=== PATIENT | male | born 1945 | race Caucasian/White ===

== ENCOUNTER 2017-06-04 13:23 | Emergency (ER) | payer MEDICARE ==
[2017-06-04 13:36] VITALS: BP 122/75
--- NOTE | 2017-06-04 15:11 | UC ---
Alexandre Bonds Nilda, scribed for Zi Bennett MD on 06/04/17 at 1449 . Abdominal Pain Male HPI - HPI Summary HPI Summary: This patient is a 71 year old M presenting to [facility] [place] with a chief complaint of intermittent RUQ pain since yesterday. The patient rates the aching pain 4/10 in severity. Symptoms aggravated by palpation and alleviated by nothing. Patient denies N/V, fever, and dysuria. Last BM was this morning and was normal and without blood per patient. Patient states he has not experienced previous similar episode. No PMHx renal calculi. No PSHx APPY. - History of Current Complaint Chief Complaint: UCAbdominalPain Stated Complaint: ABD PAIN Time Seen by Provider: 06/04/17 14:38 Hx Obtained From: Patient Onset/Duration: Sudden Onset, Lasting Days - yesterday, Still Present Timing: Intermittent Episodes Lasting: Severity Currently: Moderate Pain Intensity: 4 Pain Scale Used: 0-10 Numeric Location: Discrete At: RUQ Radiates: No Character: Aching Aggravating Factor(s): Other - palpation Alleviating Factor(s): Nothing Associated Signs And Symptoms: Positive: Other - denies N/V, fever, and dysuria - Allergies/Home Medications Allergies/Adverse Reactions: Allergies Allergy/AdvReac Type Severity Reaction Status Date / Time Penicillins Allergy Rash And Verified 06/04/17 13:32 Itching Home Medications: Home Medications Omeprazole CAP* [Prilosec CAP* 20 MG] 20 mg PO DAILY 06/04/17 [History Confirmed 06/04/17] PMH/Surg Hx/FS Hx/Imm Hx - Surgical History Surgical History: Yes Surgery Procedure, Year, and Place: TONSILS; DENTAL SURGERY; - Social History Alcohol Use: Daily Alcohol Amount: 1 glass wine at night Substance Use Type: None Smoking Status (MU): Never Smoked Tobacco Review of Systems All Other Systems Reviewed And Are Negative: Yes Physical Exam - Summary Physical Exam Summary: VITAL SIGNS: Reviewed. GENERAL: Patient is a well developed and nourished male who is lying comfortable in the stretcher. Patient is not in any acute respiratory distress. HEAD AND FACE: Normocephalic and atraumatic. EYES: PERRLA, EOMI x 2, No injected conjunctiva. EARS: Hearing grossly intact. Ear canals and tympanic membranes are WNL. MOUTH: Oropharynx within normal limits. NECK: Supple, trachea is midline, no adenopathy, no JVD. CHEST: Symmetric, no tenderness at palpation LUNGS: Clear to auscultation bilaterally. No wheezing or crackles. CVS: RRR,, S1 and S2 present, no murmurs or gallops appreciated. ABDOMEN: Soft, positve tenderness in the RLQ and Right flank area. Positive right CVTA tenderness. EXTREMITIES: FROM in all major joints, no edema, no cyanosis or clubbing. NEURO: Alert and oriented x 3. No acute neurological deficits. Speech is normal. SKIN: Dry and warm : Circumcised penis, both testicles are descended. No masses are appreciated. Positive cremasteric reflex. Triage Information Reviewed: Yes Vital Signs: Initial Vital Signs Temp 98.1 F 06/04/17 13:26 Pulse 91 06/04/17 13:26 Resp 18 06/04/17 13:26 BP 122/75 06/04/17 13:26 Pulse Ox 100 06/04/17 13:26 Abd Pain Male Course/Dx - Course Course Of Treatment: Patient with RLQ and rihgt flank tenderness. DDX: appendicitis, urethral stone or diverticulitis. Patoent transfered to the ED for further w/u and management. He declined ambulance, he will drive to the ED. Medications reviewed. Allergies reviewed. The patient was found to have increase BP in UC. The patient will follow up with PCP for better control of BP. - Differential Dx/Clinical Impression Differential Diagnosis/HQI/PQRI: Appendicitis, Bowel Obstruction, Constipation, Diverticulitis, Prostatitis, Renal Colic, Testicular Torsion, Ureteral Stone, Urinary Tract Infection Provider Diagnoses: Right lower quadrant and right flank pain Discharge - Sign-Out/Discharge Documenting (check all that apply): Discharge - Discharge Plan Condition: Stable Disposition: HOME Patient Education Materials: Flank Pain (ED) Referrals: Usman Peralta MD [Primary Care Provider] - Additional Instructions: FOLLOW UP WITH YOUR PRIMARY CARE PROVIDER WITHIN ONE WEEK FOR HIGH BLOOD PRESSURE NOTED TODAY. Patient will be send to the ED for further w/u for abdominal and flank pain. Patient declined an ambulance. - Billing Disposition and Condition Condition: STABLE Disposition: HOME The documentation as recorded by the Alexandre weston Nilda accurately reflects the service I personally performed and the decisions made by me, Zi Bennett MD.
== END 2017-06-04 14:53 | disposition home or self-care (01) ==
LOC: UCEAST 13:23
DX: R10.31 Right lower quadrant pain (principal); Z88.0 Allergy status to penicillin
CPT/HCPCS: 99212; G0463

== ENCOUNTER 2017-06-04 15:12 | Emergency (ER) | payer MEDICARE ==
[2017-06-04 17:59] LABS: ABS Basophils 0 10^3/ul (0-0.2); ABS Eosinophils 0.2 10^3/ul (0-0.6); ABS Lymphocytes 1.9 10^3/ul (1.0-4.8); ABS Monocytes 0.6 10^3/ul (0-0.8); ABS Neutrophils 7.6 10^3/ul (1.5-7.7); ABS Nucleated RBC 0 10^3/ul; Eosinophil % 1.8 % (0-6); Hematocrit 43 % (42-52); Hemoglobin 14.5 g/dl (14.0-18.0); Lymphocyte % 18.4 % (25-47); Mean Corpuscular HGB Conc 34 g/dl (31-36); Mean Corpuscular Hemoglobin 30 pg (27-31); Mean Corpuscular Volume 89 fL (80-94); Mean Platelet Volume 9 um3 (7.4-10.4); Nucleated Red Blood Cells % 0; Platelet Count 223 10^3/ul (150-450); Red Cell Distribution Width 13 % (10.5-15); White Blood Count 10.4 10^3/ul (3.5-10.8)
[2017-06-04 18:18] LABS: EGFR Non-African American 90.3 (>60)
--- NOTE | 2017-06-04 18:39 | RAD ---
HISTORY: Right upper quadrant pain COMPARISONS: None TECHNIQUE: Multiple transverse and longitudinal ultrasound images were obtained of the right upper quadrant of the abdomen using grayscale, color Doppler, and spectral Doppler imaging. FINDINGS: LIVER: The liver is diffusely echogenic and coarse in echotexture, with decreased acoustic transmission. The liver is otherwise normal in shape, size, and contour. There is normal hepatopedal flow of the portal vein on Doppler imaging. BILIARY TREE: There is no intrahepatic or extrahepatic biliary dilatation. The common duct measures 0.3 cm. GALLBLADDER: The gallbladder is well-visualized. There is no cholelithiasis, gallbladder wall thickening, pericholecystic fluid, or sonographic Wesley sign. A gallbladder wall polyp is noted measuring 0.27 m in size. PANCREAS: The head of the pancreas is unremarkable. The tail of the pancreas is not well visualized secondary to overlying bowel gas. RIGHT KIDNEY: Is noted measuring 3.5 cm. There is no hydronephrosis or nephrolithiasis. The right kidney measures 11.1 x 4.4 x 5 cm. AORTA AND IVC: The aorta and IVC are unremarkable. Normal arterial and venous waveforms are identifiable on spectral Doppler imaging. FLUID: There are no pleural effusions. There is no free fluid within the hepatorenal recess. OTHER FINDINGS: None. IMPRESSION: 1. FATTY INFILTRATION OF THE LIVER. 2. 0.2 CM GALLBLADDER WALL POLYP.
[2017-06-04 19:33] LABS: Urine Appearance Clear; Urine Blood Negative (Negative); Urine Color Yellow; Urine Ketones Trace (Negative); Urine Protein Negative (Negative); Urine Specific Gravity 1.013 (1.010-1.030); Urine Urobilinogen Negative (Negative)
[2017-06-04] MEDS ORDERED: Iohexol 300* (CONTRAST) 10 ML SDV IV ONE (19:35)
--- NOTE | 2017-06-04 20:17 | RAD ---
CLINICAL HISTORY: Right lower quadrant pain COMPARISON: Ultrasound dated June 04, 2017 TECHNIQUE: Multiple contiguous axial CT scans were obtained of the abdomen and pelvis after the administration of intravenous contrast. Coronal and sagittal multiplanar reformations are submitted for review. FINDINGS: LUNG BASES: The lung bases are clear. LIVER: The liver is diffusely low in attenuation compared to the spleen. There are no focal hepatic parenchymal masses. BILE DUCTS: There is no intrahepatic or extrahepatic biliary dilatation. GALLBLADDER: The gallbladder is normal, without pericholecystic inflammatory change. PANCREAS: The pancreas is normal, without mass or ductal dilatation. SPLEEN: Normal in size and appearance. UPPER GI TRACT: Evaluation of the gastrointestinal tract is limited by incomplete gastric distention. There is malrotation. The ligament of Treitz is to the right of midline. SMALL BOWEL AND MESENTERY: As noted above, there is malrotation, with the small bowel predominantly on the right side of the abdomen. COLON: There is malrotation with the large bowel predominantly on the left side of the abdomen. The cecum is noted within the mid abdomen. A normal appendix is noted best seen on coronal images 18 through 23. There is no appreciable volvulus. ADRENALS: Normal bilaterally. KIDNEYS: There is a simple cyst of the right kidney. There is no appreciable hydronephrosis or nephrolithiasis. BLADDER: The bladder is smooth in contour. PELVIC ORGANS: The prostate is diffusely enlarged. The seminal vesicles are symmetric. AORTA: The aorta is normal. IVC: Unremarkable LYMPH NODES: There is no lymphadenopathy by size criteria. ABDOMINAL WALL: There is no evidence for abdominal wall hernia. BONES AND SOFT TISSUES: There are mild diffuse degenerative changes. OTHER: None IMPRESSION: 1. 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 2. NORMAL APPENDIX. 3. FATTY INFILTRATION OF THE LIVER. 4. ENLARGED PROSTATE.
[2017-06-04] MEDS ORDERED: traMADol TAB* 50 MG PO ONE (21:25)
[2017-06-04 22:06] VITALS: BP 123/73
--- NOTE | 2017-06-08 13:42 | ED ---
Mary Bonds Gabriel, scribed for Juan Naylor MD on 06/04/17 at 1748 . Abdominal Pain/Male - HPI Summary HPI Summary: This patient is a 71 year old M presenting to [facility] with a chief complaint of waxing and waning ABD pain that began yesterday. The patient rates the pain 4/ 10 in severity. Patient denies fever, sweat, dysuria, hematuria, melena, and n/v /d. Pt states the pain was worse last night after dinner, he had salmon. No hx of kidney stones. - History of Current Complaint Chief Complaint: EDAbdPain Stated Complaint: ABD PAIN/SENT FROM [facility] Time Seen by Provider: 06/04/17 17:34 Hx Obtained From: Patient Onset/Duration: Still Present Timing: Constant Severity Initially: Moderate Severity Currently: Moderate Pain Intensity: 4 Pain Scale Used: 0-10 Numeric Location: Diffuse Radiates: No Associated Signs And Symptoms: Positive: Negative - fever, sweat, dysuria, hematuria, melena, n/v/d, - Allergies/Home Medications Allergies/Adverse Reactions: Allergies Allergy/AdvReac Type Severity Reaction Status Date / Time Penicillins Allergy Rash And Verified 06/04/17 15:26 Itching PMH/Surg Hx/FS Hx/Imm Hx Endocrine/Hematology History: Denies: Hx Diabetes Cardiovascular History: Denies: Hx Hypertension, Hx Pacemaker/ICD Respiratory History: Denies: Hx Asthma History: Denies: Hx Renal Disease Sensory History: Denies: Hx Hearing Aid Psychiatric History: Denies: Hx Panic Disorder - Surgical History Surgery Procedure, Year, and Place: TONSILS; DENTAL SURGERY; Infectious Disease History: No Infectious Disease History: Denies: Traveled Outside the [place] in Last 30 Days - Family History Known Family History: Negative: Blood Disorder - Social History Alcohol Use: Daily Alcohol Amount: 1 glass wine at night Substance Use Type: Reports: None Smoking Status (MU): Never Smoked Tobacco Review of Systems Negative: Fever, Chills, Skin Diaphoresis Negative: Drainage Negative: Sore Throat Negative: Chest Pain Negative: Shortness Of Breath, Cough Gastrointestinal: Negative - melena Positive: Abdominal Pain. Negative: Vomiting, Diarrhea, Nausea Negative: dysuria, hematuria Negative: Myalgia, Edema Negative: Rash Neurological: Negative - dizziness All Other Systems Reviewed And Are Negative: Yes Physical Exam - Summary Physical Exam Summary: Constitutional: Well-developed, Well-nourished, Alert. (-) Distressed Skin: Warm, Dry HENT: Normocephalic; Atraumatic Eyes: Conjunctiva normal Neck: Musculoskeletal ROM normal neck. (-) JVD, (-) Stridor, (-) Tracheal deviation Cardio: Rhythm regular, rate normal, Heart sounds normal; Intact distal pulses; The pedal pulses are 2+ and symmetric. Radial pulses are 2+ and symmetric. (-) Murmur Pulmonary/Chest wall: Effort normal. (-) Respiratory distress, (-) Wheezes, (-) Rales Abd: Soft, (+) RUQ Tenderness, (-) Distension, (-) Guarding, (-) Rebound Musculoskeletal: (-) Edema Lymph: (-) Cervical adenopathy Neuro: Alert, Oriented x3 Psych: Mood and affect Normal Triage Information Reviewed: Yes Vital Signs On Initial Exam: Initial Vitals Temp Pulse Resp BP Pulse Ox 98.4 F 83 16 125/79 100 06/04/17 15:26 06/04/17 15:26 06/04/17 15:26 06/04/17 15:26 06/04/17 15:26 Vital Signs Reviewed: Yes Diagnostics - Vital Signs Vital Signs Temp Pulse Resp BP Pulse Ox 06/04/17 17:20 98.3 F 74 20 127/75 100 06/04/17 15:26 98.4 F 83 16 125/79 100 - Laboratory Result Diagrams: 06/04/17 17:40 06/04/17 17:40 Lab Statement: Any lab studies that have been ordered have been reviewed, and results considered in the medical decision making process. - CT CT ABD/Pelvis CT Interpretation Completed By: Radiologist - 1. 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 2. NORMAL APPENDIX. 3. FATTY INFILTRATION OF THE LIVER. 4. ENLARGED PROSTATE. ED physician has reviewed this radiology report. Re-Evaluation - Re-Evaluation First Eval Re-Evaluation Time: 21:32 Change: Improved Comment: The patient's pain has decreased and I discussed all test results with the pt. Abdominal Pain Fem Course/Dx - Course Assessment/Plan: This patient is a 71 year old M presenting to [facility] with a chief complaint of waxing and waning ABD pain that began yesterday. The patient rates the pain 4/10 in severity. Patient denies fever, sweat, dysuria, hematuria , melena, and n/v/d. Pt states the pain was worse last night after dinner, he had salmon. No hx of kidney stones. Gallbladder US reveals, per radiologist, 1. FATTY INFILTRATION OF THE LIVER. 2. 0.2 CM GALLBLADDER WALL POLYP. ABD/ pelvis CT reveals, 1. 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 2. NORMAL APPENDIX. 3. FATTY INFILTRATION OF THE LIVER. 4. ENLARGED PROSTATE. Test results with no significant abnormalities. Blood work and UA obtained. The pt symptoms are colicky and worse after meals. There is no surgical ABD present and he was non tender on repeat exam. Dx biliary colic. We discussed patient care with Dr. Meade and they stated there is no need for surgical management of the malrotation. Patient will be discharged and follow up from Dr. Meade. The patient is agreeable with this plan. - Diagnoses Provider Diagnoses: Biliary colic - Provider Notifications Discussed Care Of Patient With: Cam Meade Time Discussed With Above Provider: 21:00 Instructed by Provider To: Other Discharge - Sign-Out/Discharge Documenting (check all that apply): Discharge - Discharge Plan Condition: Stable Disposition: HOME Patient Education Materials: Biliary Colic (ED), Low Fat Diet (ED) Referrals: Usman Peralta MD [Primary Care Provider] - 3 Days Cam Meade MD [Medical Doctor] - 3 Days Additional Instructions: RETURN TO THE EMERGENCY DEPARTMENT FOR CHANGING OR WORSENING SYMPTOMS. The documentation as recorded by the Mary weston Gabriel accurately reflects the service I personally performed and the decisions made by , Juan Naylor MD.
== END 2017-06-04 22:01 | disposition home or self-care (01) ==
LOC: ED 15:12
DX: K80.50 Calculus of bile duct without cholangitis or cholecystitis without obstruction (principal); N40.0 Benign prostatic hyperplasia without lower urinary tract symptoms; Z88.0 Allergy status to penicillin
CPT/HCPCS: 36415; 74177; 76705; 80053; 81003; 83605; 83690; 85025; 86140; 99284; Q9967

== ENCOUNTER 2020-07-18 12:46 | Observation (INO) ==
[2020-07-18 13:18] LABS: ABS Eosinophils 0.1 10^3/ul (0-0.6); ABS Lymphocytes 1.9 10^3/ul (1.0-4.8); ABS Monocytes 0.4 10^3/ul (0-0.8); ABS Neutrophils 6.3 10^3/ul (1.5-7.7); Eosinophil % 1.7 %; Hematocrit 44 % (42-52); Hemoglobin 14.6 g/dL (14.0-18.0); Lymphocyte % 21.1 %; Mean Corpuscular HGB Conc 33 g/dL (31-36); Mean Corpuscular Hemoglobin 29 pg (27-31); Mean Corpuscular Volume 88 fL (80-94); Mean Platelet Volume 8.6 fL (7.4-10.4); Platelet Count 220 10^3/uL (150-450); Red Blood Count 4.99 10^6 /uL (4.18-5.48); Red Cell Distribution Width 13 % (10-15); White Blood Count 8.8 10^3/uL (3.5-10.8)
[2020-07-18 13:37] LABS: Albumin 4.4 g/dL (3.2-5.2); Albumin/Globulin Ratio 1.6 (1-3); Calcium 9.2 mg/dL (8.6-10.3); EGFR African American 89.7 (>60); EGFR Non-African American 74.1 (>60); Globulin 2.8 g/dL (2-4); Potassium 4.1 mmol/L (3.5-5.0); Total Bilirubin 0.4 mg/dL (0.2-1.0); Total Protein 7.2 g/dL (6.4-8.9)
[2020-07-18] MEDS ORDERED: Polyethylene Glycol 3350 17 GM PACKET PO PRN (15:50)
[2020-07-18] MEDS: Heparin 5000 UNITS/ML 1 mL VIAL SUBCUT SCH (20:41)
[2020-07-19 05:01] LABS: ABS Eosinophils 0.3 10^3/ul (0-0.6); ABS Lymphocytes 2.2 10^3/ul (1.0-4.8); ABS Monocytes 0.5 10^3/ul (0-0.8); ABS Neutrophils 3.5 10^3/ul (1.5-7.7); Eosinophil % 4.3 %; Hematocrit 41 % (42-52); Hemoglobin 13.8 g/dL (14.0-18.0); Lymphocyte % 33.8 %; Mean Corpuscular HGB Conc 33 g/dL (31-36); Mean Corpuscular Hemoglobin 29 pg (27-31); Mean Corpuscular Volume 88 fL (80-94); Mean Platelet Volume 8.8 fL (7.4-10.4); Platelet Count 185 10^3/uL (150-450); Red Blood Count 4.71 10^6 /uL (4.18-5.48); Red Cell Distribution Width 14 % (10-15); White Blood Count 6.5 10^3/uL (3.5-10.8)
[2020-07-19 05:15] LABS: EGFR African American 90.7 (>60); HDL Cholesterol 35.6 mg/dL; Potassium 4.4 mmol/L (3.5-5.0)
[2020-07-19 05:48] LABS: TSH Ultra Thyroid Stim Horm 2.2 mcIU/mL (0.34-5.60)
[2020-07-19] MEDS ORDERED: Regadenoson 0.4 MG/5 ML SYRINGE ONE (09:03)
[2020-07-19] MEDS: Heparin 5000 UNITS/ML 1 mL VIAL SUBCUT SCH (11:41)
[2020-07-19 12:22] VITALS: BP 129/67
== END 2020-07-19 14:45 | disposition home or self-care (01) ==
LOC: ED 12:46 → MEDTELE 12:46
PROVIDERS: ADMIT Hospitalist; ATTEND Hospitalist

== ENCOUNTER 2022-09-28 18:39 | Inpatient (IN) ==
[2022-09-28] MEDS ORDERED: Heparin 5000 UNITS/ML 1 mL VIAL SUBCUT ONE (22:52)
[2022-09-28] MEDS ORDERED: Morphine 2 MG/ML SYRINGE IV PRN (23:02)
[2022-09-29 00:53] LABS: ABS Eosinophils 0.1 10^3/uL (0.0-0.5); ABS Lymphocytes 1.3 10^3/uL (1.0-4.8); ABS Monocytes 0.8 10^3/uL (0.0-1.1); ABS Neutrophils 8.2 10^3/uL (1.5-7.6); ABS Nucleated RBC 0.01 10^3/ul; Eosinophil % 1.2 %; Hematocrit 33.8 % (38-53); Hemoglobin 12.1 g/dL (13.2-16.3); Lymphocyte % 12.9 %; Mean Corpuscular Hemoglobin 33.4 pg (27-33); Mean Corpuscular Hgb Conc 35.7 g/dL (31-36); Mean Corpuscular Volume 93.6 fL (80-97); Mean Platelet Volume 8.2 fL (7.5-11.2); Nucleated Red Blood Cells % 0.1 /100 WBC (0.0-0.4); Platelet Count 187 10^3/uL (150-450); Red Blood Count 3.61 10^6/uL (4.06-5.63); Red Cell Distribution Width 13.6 % (12-17); White Blood Count 10.4 10^3/uL (3.6-10.2)
[2022-09-29 01:01] LABS: Calcium 8.9 mg/dL (8.6-10.3); Potassium 3.9 mmol/L (3.5-5.0)
[2022-09-29] MEDS ORDERED: Naloxone 0.4 mg VIAL 0.4 mg/ml 1 ml VIAL IV PRN (07:52)
[2022-09-29] MEDS ORDERED: HYDROmorphone 1 MG/1 ML SYRINGE IV PRN (07:52)
[2022-09-29] MEDS ORDERED: Ondansetron 4 mg VIAL 2 MG/ML 2 ml VIAL IV PRN (07:52)
[2022-09-29] MEDS ORDERED: fentaNYL 100 mcg/2 ml 50 MCG/ML VIAL IV PRN (07:52)
[2022-09-29] MEDS ORDERED: Bupivacaine 0.5% W/EPI SDV 10 ML VIAL INJ ONE (08:08)
[2022-09-29] MEDS ORDERED: Dexamethasone IV 4 MG/ML VIAL 1 ml VIAL ONE (08:25)
[2022-09-29] MEDS ORDERED: Propofol 10 MG/ML 20 ML BTL ONE (08:25)
[2022-09-29] MEDS ORDERED: Ondansetron 4 mg VIAL 2 MG/ML 2 ml VIAL ONE (08:25)
[2022-09-29] MEDS ORDERED: fentaNYL 100 mcg/2 ml 50 MCG/ML VIAL ONE (08:27)
[2022-09-29] MEDS ORDERED: Clindamycin 900 MG/50 **NS BAG 900 MG/50 ML BAG ONE (08:31)
[2022-09-29] MEDS ORDERED: Acetaminophen IV 1 GM/100ML 1,000 MG/100 ML BAG IV ONE (09:08)
[2022-09-29] MEDS ORDERED: Phenylephrine 40 mcg/mL 10mL (400mcg) SYRINGE ONE (09:10)
[2022-09-29] MEDS: Polyethylene Glycol 3350 17 GM PACKET PO PRN (14:21)
[2022-09-29] MEDS: Clindamycin 600 MG/NS BAG(*) 600 MG/50 ML BAG IV SCH (17:02)
[2022-09-29] MEDS: Ranolazine 500 mg TAB ER (NF) PO SCH (19:46)
[2022-09-30] MEDS: Clindamycin 600 MG/NS BAG(*) 600 MG/50 ML BAG IV SCH ×2 (01:48→08:40)
[2022-09-30 07:37] LABS: ABS Lymphocytes 0.8 10^3/uL (1.0-4.8); ABS Monocytes 0.8 10^3/uL (0.0-1.1); ABS Neutrophils 13.2 10^3/uL (1.5-7.6); Eosinophil % 0.1 %; Hematocrit 32.6 % (38-53); Hemoglobin 11.2 g/dL (13.2-16.3); Lymphocyte % 5.4 %; Mean Corpuscular Hemoglobin 32.6 pg (27-33); Mean Corpuscular Hgb Conc 34.3 g/dL (31-36); Mean Corpuscular Volume 95.2 fL (80-97); Mean Platelet Volume 8.6 fL (7.5-11.2); Platelet Count 190 10^3/uL (150-450); Red Blood Count 3.43 10^6/uL (4.06-5.63); Red Cell Distribution Width 13.7 % (12-17); White Blood Count 14.9 10^3/uL (3.6-10.2)
[2022-09-30 07:55] LABS: Calcium 8.5 mg/dL (8.6-10.3); Creatinine, Serum 0.73 mg/dL (0.67-1.17); eGFR CKD-EPI 94.3 (>60)
[2022-09-30] MEDS: Ranolazine 500 mg TAB ER (NF) PO SCH ×2 (08:47→20:29)
[2022-09-30 10:14] LABS: Potassium 4.2 mmol/L (3.5-5.0)
[2022-09-30] MEDS: Polyethylene Glycol 3350 17 GM PACKET PO PRN (14:52)
[2022-10-01 06:20] LABS: ABS Eosinophils 0.3 10^3/uL (0.0-0.5); ABS Lymphocytes 2.4 10^3/uL (1.0-4.8); ABS Monocytes 0.8 10^3/uL (0.0-1.1); ABS Neutrophils 6.1 10^3/uL (1.5-7.6); Hematocrit 29.9 % (38-53); Hemoglobin 10.5 g/dL (13.2-16.3); Lymphocyte % 24.9 %; Mean Corpuscular Hemoglobin 33.4 pg (27-33); Mean Corpuscular Hgb Conc 35.1 g/dL (31-36); Mean Platelet Volume 8.6 fL (7.5-11.2); Platelet Count 165 10^3/uL (150-450); Red Blood Count 3.15 10^6/uL (4.06-5.63); Red Cell Distribution Width 13.5 % (12-17); White Blood Count 9.7 10^3/uL (3.6-10.2)
[2022-10-01] MEDS: Ranolazine 500 mg TAB ER (NF) PO SCH (08:55)
[2022-10-01 10:39] VITALS: BP 103/63
[2022-10-01] MEDS ORDERED: Ondansetron 4 mg VIAL 2 MG/ML 2 ml VIAL IV PRN (11:29)
[2022-10-01] MEDS ORDERED: Ondansetron ODT 4 mg TAB 4 MG TAB ONE (11:34)
== END 2022-10-01 16:05 | disposition home or self-care (01) | DRG 482 ==
LOC: ED 18:39 → SUATTDRO 22:47 → EDHOLD 22:47 → SSU 09-29 01:57
PROVIDERS: ADMIT Student in an Organized Health Care Education/Training Program; ATTEND Internal Medicine

== ENCOUNTER 2023-02-27 13:47 | Observation (INO) ==
[2023-02-27 14:29] LABS: ABS Eosinophils 0.2 10^3/uL (0.0-0.5); ABS Lymphocytes 1.1 10^3/uL (1.0-4.8); ABS Monocytes 0.7 10^3/uL (0.0-1.1); ABS Neutrophils 9.8 10^3/uL (1.5-7.6); Eosinophil % 2.1 %; Hematocrit 38.9 % (38-53); Mean Corpuscular Hemoglobin 31.2 pg (27-33); Mean Corpuscular Hgb Conc 33.6 g/dL (31-36); Mean Corpuscular Volume 92.9 fL (80-97); Mean Platelet Volume 8.2 fL (7.5-11.2); Platelet Count 241 10^3/uL (150-450); Red Blood Count 4.19 10^6/uL (4.06-5.63); Red Cell Distribution Width 13.4 % (12-17); White Blood Count 11.8 10^3/uL (3.6-10.2)
[2023-02-27 14:30] LABS: INR 1.15 (0.83-1.13)
[2023-02-27 14:58] LABS: ALT 15 U/L (7-52); AST 15 U/L (13-39); Albumin 4.3 g/dL (3.2-5.2); Albumin/Globulin Ratio 1.7 (1-3); Alkaline Phosphatase 92 U/L (35-149); Anion Gap 8 mmol/L (2-16); Blood Urea Nitrogen 22 mg/dL (6-24); CO2 Carbon Dioxide 29 mmol/L (22-32); Calcium 9.1 mg/dL (8.6-10.3); Chloride 102 mmol/L (101-111); Creatinine, Serum 0.95 mg/dL (0.67-1.17); Globulin 2.5 g/dL (2-4); Glucose 135 mg/dL (70-100); Potassium 4.4 mmol/L (3.5-5.0); Sodium 139 mmol/L (135-145); Total Bilirubin 0.7 mg/dL (0.2-1.0); Total Protein 6.8 g/dL (6.4-8.9)
[2023-02-27 15:01] LABS: High Sens Troponin Baseline < 3 pg/mL (<20)
[2023-02-27 15:56] LABS: High Sensitivity Troponin 1 Hr 3 pg/mL (<20)
[2023-02-27] MEDS ORDERED: Polyethylene Glycol 3350 17 GM PACKET PO PRN (17:15)
[2023-02-27] MEDS: Ranolazine 500 mg TAB ER (NF) PO SCH (20:42)
[2023-02-28 06:35] LABS: Hematocrit 36.8 % (38-53); Hemoglobin 12.6 g/dL (13.2-16.3); Mean Corpuscular Hemoglobin 31.5 pg (27-33); Mean Corpuscular Hgb Conc 34.2 g/dL (31-36); Mean Platelet Volume 8.4 fL (7.5-11.2); Platelet Count 224 10^3/uL (150-450); Red Cell Distribution Width 13.8 % (12-17); White Blood Count 8.4 10^3/uL (3.6-10.2)
[2023-02-28 06:49] LABS: Calcium 9.1 mg/dL (8.6-10.3); Creatinine, Serum 0.76 mg/dL (0.67-1.17); eGFR CKD-EPI 93.2 (>60)
[2023-02-28] MEDS: Ranolazine 500 mg TAB ER (NF) PO SCH ×2 (12:55→20:42)
[2023-02-28] MEDS ORDERED: Enoxaparin 40 MG/0.4 ML SYR SUBCUT SCH (20:00)
[2023-03-01 06:16] LABS: Mean Corpuscular Hemoglobin 31.4 pg (27-33); Mean Corpuscular Hgb Conc 34.1 g/dL (31-36); Mean Corpuscular Volume 91.9 fL (80-97); Mean Platelet Volume 8.3 fL (7.5-11.2); Platelet Count 228 10^3/uL (150-450); Red Blood Count 4.13 10^6/uL (4.06-5.63); Red Cell Distribution Width 13.5 % (12-17); White Blood Count 7.8 10^3/uL (3.6-10.2)
[2023-03-01 06:36] LABS: Creatinine, Serum 0.93 mg/dL (0.67-1.17); eGFR CKD-EPI 85.1 (>60)
[2023-03-01] MEDS: Ranolazine 500 mg TAB ER (NF) PO SCH (08:52)
[2023-03-01 11:44] VITALS: BP 113/65
== END 2023-03-01 14:00 | disposition home or self-care (01) ==
LOC: EDHOLD 13:47 → ED 13:47 → MEDTELE 18:45
PROVIDERS: ADMIT Internal Medicine; ATTEND Internal Medicine